=== PATIENT | female | born 1960 | race Caucasian/White ===

== ENCOUNTER 2017-09-03 13:04 | Inpatient (IN) | payer OTHER ==
[~2017-09-03] VITALS: Ht 154.9 cm; Wt 81.6 kg
--- NOTE | ~2017-09-03 | EKG ---
[address] [place] [employer] [place] [address] ELECTROCARDIOGRAM REPORT Name: HOLLEY CAMPBELLLY Garry Room #: 349-I ADM IN M.R.#: [id number] Admission: 09/03/17 Attend Phys: Mateo Ybarra DO Discharge: Date of : 62 Report #: [id number] THIS REPORT FOR: //name// [facility] ED Test Date: 2017-09-03 Test Time: 16:36:18 Pat Name: JESENIA CAMPBELL Department: Room: 349 Gender: F [employer] Contact Lens: GREGORIO : 1960 Requested By: Mellisa Klein Order Number: [id number] MD: Javi Marie Measurements Intervals [place] Rate: 62 P: 34 MI: 180 QRS: -6 QRSD: 84 T: 21 QT: 401 QTc: 408 Interpretive Statements Sinus rhythm Consider left atrial enlargement Compared to ECG 12/22/2010 12:58:54 No significant changes Electronically Signed On 09-03-2017 22:42:57 CDT by Javi Marie [email or web address] <ELECTRONICALLY SIGNED> By: Javi Marie MD 09/03/17 2242 35 35 Javi Marie MD /[place]
--- NOTE | ~2017-09-03 | 2DMMODE ---
[facility] [address] [place] [address] 2 D/M-MODE ECHOCARDIOGRAM Name: CAMPBELLJESENIA Room #: 349-I ADM IN ..#: [id number] Admission: 09/03/17 Attend Phys: Mateo Ybarra, Discharge: Date of : 62 Date of Service: 09/04/17 0837 Report #: [id number] THIS REPORT FOR: //name// APPROVED REPORT Study performed: 09/04/2017 07:25:15 EXAM: Comprehensive 2D, Doppler, and color-flow Echocardiogram Patient Location: Bedside Room #: 349 Status: routine BSA: 1.81 HR: 60 bpm BP: 118/73 mmHg Rhythm: NSR Other Information Study Quality: Good Indications TIA Echo Enhancing Agent Indication: Rule out Shunt Agent(s) / Amount(s) Used: Definity 6 cc 2D Dimensions RVDd: 32.10 mm LVEF(%): 74.35 (>50%) IVSd: 8.94 (7-11mm) LVOT Diam: 19.02 (18-24mm) LVDd: 50.89 mm PWd: 9.08 (7-11mm) Ascending Ao: 29.73 (22-36mm) LVDs: 28.78 (25-40mm) Aortic Root: 27.40 mm Milligan's LVEF: 74.35 % Volumes Left Atrial Volume (Systole) Single Plane 4CH: 35.13 mL Single Plane 2CH: 43.69 mL LA ESV Index: 24.00 mL/m2 Aortic Valve AoV Peak Doc.: 1.84 m/s AO Peak Gr.: 13.61 mmHg LVOT Max P.69 mmHg LVOT Max V: 1.39 m/s ERNA Vmax: 2.13 cm2 [facility] [place] [address] 2 D/M-MODE ECHOCARDIOGRAM Name: JESENIA CAMPBELL Room #: 349-I [facility] IN .R.#: [id number] Admission: 09/03/17 Attend Phys: Mateo Ybarra, Discharge: Date of : 62 Date of Service: 09/04/17 0837 Report #: [id number] Mitral Valve E/A Ratio: 1.2 MV Decel. Time: 227.68 ms MV E Max Doc.: 0.91 m/s MV A Doc.: 0.78 m/s MV PHT: 66.03 ms IVRT: 64.59 ms Pulmonary Valve PV Peak Doc.: 0.99 m/s PV Peak Gr.: 3.92 mmHg Pulmonary Vein P Vein S: 0.61 m/s P Vein A: 0.26 m/s P Vein D: 0.38 m/s P Vein A Dur.: 92.3 msec P Vein S/D Ratio: 1.61 Tricuspid Valve TR Peak Doc.: 2.09 m/s RAP Estimate: 5.00 mmHg TR Peak Gr.: 17.41 mmHg PA Pressure: 22.00 mmHg Left Ventricle The left ventricle is normal size. There is normal LV segmental wall motion. There is normal left ventricular wall thickness. The left ventricular systolic function is normal. LVEF is 60%. The left ventricular diastolic function is normal. Right Ventricle The right ventricle is normal size. The right ventricular systolic function is normal. Atria The left atrium size is normal. Injection of bubbles documented right to left shunting consistent with a patent foramen ovale. The right atrium size is normal. Aortic Valve The aortic valve is normal in structure. No aortic regurgitation is present. There is no aortic valvular stenosis. Mitral Valve The mitral valve is normal in structure. Trace mitral regurgitation. Tricuspid Valve [address] [address] 2 D/M-MODE ECHOCARDIOGRAM Name: JESENIA CAMPBELL Room #: 349-I [facility] IN [facility]#: [id number] Admission: 09/03/17 Attend Phys: Mateo Ybarra, Discharge: Date of : 62 Date of Service: 09/04/17 0837 Report #: [id number] The tricuspid valve is normal in structure. Trace tricuspid regurgitation. Estimated PAP is 22mmHg. Pulmonic Valve The pulmonary valve is normal in structure. Trace pulmonic regurgitation. Great Vessels The aortic root is normal in size. The ascending aorta is normal in size. IVC is normal in size and collapses >50% with inspiration. Pericardium There is no pericardial effusion. <Conclusion> The left ventricular systolic function is normal. There is normal LV segmental wall motion. LVEF is 60%. Normal diastolic function Injection of bubbles documented right to left shunting consistent with a patent foramen ovale. Structural valve disease was absent. No significant regurgitant or stenotic lesions There is no pericardial effusion. <ELECTRONICALLY SIGNED> By: Bora Farley MD, FACC 09/04/17836 6 6 Bora Farley MD, FACC /INF
[~2017-09-03 13:04] MED LIST: MULTIVITAMINS; PRILOSEC40 MG PO
[2017-09-03 13:13] VITALS: BP 168/92
[2017-09-03 13:29] LABS: BASOPHILS 0.8 % (0.0-2.0); EOSINOPHILS 2.8 % (0.0-3.0); HEMATOCRIT 39.4 % (37.0-47.0); HEMOGLOBIN 13.5 gm/dL (12.0-15.0); LYMPHOCYTES 31.6 % (24.0-44.0); MCH 32.8 pg (26.0-34.0); MCHC 34.2 g/dL (28.0-37.0); MCV 95.9 fL (80.0-100.0); PLATELET COUNT 280 thou/uL (150-400); POLYS 56.8 % (36.0-66.0); RDW 13.1 % (10.5-14.5)
[2017-09-03 13:30] LABS: MANUAL DIFF NO
[2017-09-03 13:37] LABS: ANION GAP 7 mmol/L (7-16); BUN 8 mg/dL (7-18); CALCIUM 10.9 mg/dL (8.5-10.1); CHLORIDE 105 mmol/L (98-107); CO2 27 mmol/L (21-32); CREATININE 0.8 mg/dL (0.6-1.0); GLUCOSE 96 mg/dL (74-106); POTASSIUM 3.6 mmol/L (3.5-5.1); SODIUM 139 mmol/L (136-145)
[2017-09-03 13:45] LABS: TROPONIN-I < 0.04 ng/mL (<0.04-0.07)
[2017-09-03] MEDS ORDERED: CLARITIN10 M3 PO (14:46)
[2017-09-03 17:16] VITALS: BP 142/77
[2017-09-03 18:11] VITALS: BP 143/80
[2017-09-03 18:46] VITALS: BP 146/77
[2017-09-03 23:17] VITALS: BP 123/71
[2017-09-04 03:55] VITALS: BP 118/73
[2017-09-04 08:12] VITALS: BP 121/66
[2017-09-04] MEDS ORDERED: ASPIRIN325 PO (09:36)
[2017-09-04 12:30] VITALS: BP 115/98
[2017-09-04 16:06] VITALS: BP 115/98
== END 2017-09-04 16:34 | disposition home or self-care (01) | DRG 69 ==
LOC: ER 13:04 → EROBS 16:06 → 3W 18:12 → ENTRNSPT 09-04 16:19 → 3W 09-04 16:34
PROVIDERS: Emergency Medicine
DX: G45.9 Transient cerebral ischemic attack, unspecified (principal); J45.909 Unspecified asthma, uncomplicated; Z79.899 Other long term (current) drug therapy
CPT/HCPCS: 10779